=== PATIENT | female | born 1990 | race Caucasian/White ===

== ENCOUNTER 2020-02-14 00:29 | Emergency (ER) | payer OTHER, SELFPAY ==
--- NOTE | ~2020-02-14 | XR_ITS ---
XR forearm RT 2V DATE: 02/14/2020 01:14 INDICATION: Dog bite. Right forearm pain. TECHNIQUE: AP and lateral views COMPARISON: None FINDINGS: No fracture or dislocation, periosteal reaction or bone destruction. No subcutaneous emphys sia or radiopaque foreign body. IMPRESSION: Negative Reviewed, dictated and finalized at location A. NESS ANALYSIS CONSULTANT IMPRESSION: Negative
[2020-02-14 00:35] VITALS: BP 142/76; PULSE 81; RESP 20; TEMP 36.7; O2SAT 100
--- NOTE | 2020-02-14 00:53 | ED.ANIMALBIT ---
HPI - Animal Bite General Chief Complaint: Animal Bite Stated Complaint: dog bite Time Seen by Provider: 02/14/20 00:49 Source: RN notes reviewed History of Present Illness HPI narrative: Patient presents to emergency department from home for dog bite. Patient states that her dog bit her in the right forearm prior to arrival. She notes one puncture wound to the right forearm states her dog is up-to-date on its shots and states that her last tetanus shot was in the past 5 years. She denies any other areas of injury. She does note some tingling in the right forearm she denies any fevers or chills Related Data Allergies Allergy/AdvReac Type Severity Reaction Status Date / Time No Known Allergies Allergy Unverified 09/10/15 01:02 Review of Systems Review of Systems: Narrative: Gen.: Denies fevers or chills Musculoskeletal: Denies joint pain Neuro: Denies, weakness reports tingling right forearm Skin: Reports dog bite Endo: Denies DM PMFSH Past Medical History Medical History (Updated 02/14/20 @ 01:26 by Andrés Spencer DO) Patient denies significant medical history Social History Social History (Updated 02/14/20 @ 00:54 by Andrés Spencer DO) Smoking status: Never smoker Exam Narrative: Exam Narrative: APPEARANCE: Tearful and anxious sitting in bed Eyes: EOMI HEENT: Normocephalic, atraumatic, RESPIRATORY: No respiratory distress MUSCULOSKELETAl: No tenderness of the right wrist or elbow with full range of motion of both, full flexion-extension of all 5 MCP and IP joints, radial pulse 2+, neurovascular intact compartments are soft, patient with pinprick sensation throughout the bilateral forearm and hand two-point tactile discrimination down to 5 mm in all 5 digits of the right hand NEURO: Awake and alert. Following commands, speech normal, no focal deficits SKIN:: Warm, dry. 1.5 cm puncture wound to the right forearm with no active bleedings or signs of drainage no surrounding erythema Course Course Emergency Course: Discussed with patient results of workup and diagnosis. Discussed need for follow-up with primary care, proper use of medication, and reasons to return to the emergency department. Patient understands and agrees to current treatment plan Vital Signs Vital signs: Vital Signs Temperature 98.1 F 02/14/20 00:35 Pulse Rate 81 02/14/20 00:35 Respiratory Rate 20 02/14/20 00:35 Blood Pressure 142/76 H 02/14/20 00:35 Pulse Oximetry 100 02/14/20 00:35 Temperature 98.1 F 02/14/20 00:35 Pulse Rate 81 02/14/20 00:35 Respiratory Rate 20 02/14/20 00:35 Blood Pressure 142/76 H 02/14/20 00:35 Pulse Oximetry 100 02/14/20 00:35 MDM - Animal Bite Imaging Data Attestation: I personally reviewed and interpreted this imaging study as follows: My impression: Right forearm x-ray reviewed myself shows no acute process Discharge Plan Discharge Clinical Impression: Dog bite of right forearm Patient Disposition: Home, Self-Care Condition: Stable Instructions: Antibiotic Form, Animal Bite (ED) Additional Instructions: Return for increasing pain increased redness of the wound or any other symptoms of concern Prescriptions: New amoxicillin-pot clavulanate [Augmentin] 875-125 mg tablet 1 tablet PO Q12H Qty: 20 RF: 0 ibuprofen [IBU] 600 mg tablet 600 mg PO Q6H PRN (Reason: pain) Qty: 20 RF: 0 Follow-up/Referrals: Shravan,THONG Hernandez [Primary Care Provider] - 2 Days Time of Disposition: 01:27
[2020-02-14] MEDS: IBUPROFEN 600 MG TABLET PO (01:01)
[2020-02-14] MEDS: AMOXICILLIN/CLAVULANATE K 875-125 MG TAB 1 TABLET PO (01:02)
== END 2020-02-14 01:58 | disposition home or self-care (01) ==
PROVIDERS: Emergency Provider Emergency Medicine; PCP Nurse Practitioner Family
DX: S51.851A Open bite of right forearm, initial encounter (principal); W54.0XXA Bitten by dog, initial encounter
CPT/HCPCS: 73090; 99283; A9270

== ENCOUNTER 2020-10-17 11:00 | Outpatient (RCR) | payer OTHER, SELFPAY ==
--- NOTE | 2020-09-10 12:01 | PTOPEVAL ---
INITIAL PHYSICAL THERAPY EVALUATION and PLAN OF CARE Thank you for referring Ryan Kilgore to [facility].? Ryan is scheduled to be seen for physical therapy? 2x/week for 4 weeks. Please review, sign, date and return this plan of care ALTON. I agree with and certify that the following plan of care is medically necessary. Referring Physician Date Admitting Provider: Attending Provider: Ivan Wright MD Referring Provider: *PT Outpatient Evaluation Start: 09/10/20 09:14 Freq: Status: Active Protocol: Document 09/10/20 09:10 HEMAL (Rec: 09/10/20 10:31 HEMAL [id number]) Therapy Assessment Status Assessment Status Assessment Status Evaluation Outpatient Past Medical History Past Medical History Source of Past Medical History Patient HEENT History Hx Tonsillectomy Yes Reproductive History Hx Other Reproductive Disorders Yes: R breast biopsy 2019 Psychosocial History Hx Anxiety Yes Evaluation Information Problem Diagnosis L shoulder instability, mostly inferior and posterior Onset last year - worsening last 6 months Subjective Information Massage therapist, training Query Text:As Reported By Patient/ for Aime Jon At Family rest -can feel L shoulder slide out of normal position with certain movements - with mild traction holding onto steering wheel No major trauma with L shoulder - just started feeling it starting to come out of socket. Has done acupuncture for pain - does help immediately - but after week or so discomfort returns. Wondering about massage for shoulder. Also sees chiropractor regularly. Diagnostic Tests X-Rays For This Problem Yes MRI For This Problem Yes Prior Level of Function Activity Level (Last 3 Months) Occupation massage therapist Hand Dominance Right Medications Home Meds (Include: OTC, RX, Vitamins, allergies med, for anxiety - Herbals, Dose, Route,and Frequency) lexapro, multivitamin and Query Text:Home Med Entries Will No calcium Longer Recall From Past Visits. Home Meds Must Be Re-entered With Each Visit. Comments Additional Prior Level of Function recreation - likes to be Comments outside - hiking, reading, etc . Pain Assessment Timing of Pain Assessment Timing o
--- NOTE | 2020-10-09 12:07 | PCPTNOTE ---
Patient called this date and left a message she needed to cancel. No reason given.
--- NOTE | 2020-10-15 13:03 | PCPTNOTE ---
Patient called & cancelled scheduled appointment this date due to not feeling well.
--- NOTE | 2020-10-24 11:23 | PCPTNOTE ---
Patient called & cancelled scheduled appointment this date due to no reason given. This was her re-eval - will await to see if she reschedules this appointment.
--- NOTE | 2020-11-06 09:35 | PCPTNOTE ---
PHYSICAL THERAPY DISCHARGE SUMMARY Admitting Provider: Attending Provider: Ivan Wright MD Patient:Ryan Kilgore Date of :1990 Ryan has not returned for any further treatments since 10/17/2020, therefore she will be discharged at this time. Ryan?s initial visit was on 09/10/2020 09:00 and she had a total of 4 visits. She cancelled 3 visits including her re-evaluation appointment. She has not called to reschedule this appointment. The goals have been partially met. Thank you for referring Ryan to [facility]. Please review, sign, date and return this discharge summary ALTON. I have been updated about Ryan's current status and I agree with discharge from the above service at this time. Referring Physician Date
== END 2020-11-27 11:15 | disposition hospice, home (50) ==
LOC: ANHPT 11:00
PROVIDERS: PCP Nurse Practitioner Family
DX: M25.312 Other instability, left shoulder (principal)
CPT/HCPCS: 97035; 97110; 97140; 97162